=== PATIENT | male | born 1990 | race American Indian/Alaskan Native ===

== ENCOUNTER 2019-11-01 17:30 | Emergency (ER) | payer SELFPAY ==
[2019-11-01] MEDS ORDERED: TETANUS,DIPH,PERTUSS(ACELL) VACCINE 0.5 ML SYRINGE IM ONE ×2 (17:47→20:34)
[2019-11-01] MEDS ORDERED: NEOMY 3.5 MG/BACIT 400 UNITS/POLY B 5000 UNITS/GM OINT PACKET TP ONE ×2 (17:47→20:33)
[2019-11-01] MEDS ORDERED: LIDOCAINE (1%) 10 MG/1 ML VIAL 20 ML MDV INFILTRATI ONE (17:47)
[2019-11-01] MEDS ORDERED: ACETAMINOPHEN 325 MG TAB PO ONE (17:47)
[2019-11-01] MEDS ORDERED: SODIUM CHLORIDE 0.9% IRR 500 ML BOTTLE IR ONE (17:47)
--- NOTE | 2019-11-01 17:49 | Event Note ---
ED Screening Note ED Screening Note: lac to l hand - 5th digit occurred when changing glass full rom bleeding controlled needs tdap This initial assessment/diagnostic orders/clinical plan/treatment(s) is/are subject to change based on patients health status, clinical progression and re- assessment by fellow clinical providers in the ED. Further treatment and workup at subsequent clinical providers discretion. Patient/guardian urged not to elope from the ED as their condition may be serious if not clinically assessed and managed. Initial orders include: needs tdap and wound repair xray ro fb
--- NOTE | 2019-11-01 19:00 | XRay Report ---
LEFT HAND 3 VIEWS INDICATION / CLINICAL INFORMATION: LAC RO FB COMPARISON: None available. FINDINGS: BONES / JOINT(S): No acute fracture or subluxation. No significant arthritis. SOFT TISSUES: No significant abnormality. ADDITIONAL FINDINGS: None. Signer Name: Mode Carroll MD Signed: 11/01/2019 6:55 PM Workstation Name: [id number]
--- NOTE | 2019-11-01 20:21 | Emergency Department Report ---
- General Chief Complaint: Wound/Laceration Stated Complaint: LFT FINGER LAC/PAIN Time Seen by Provider: 11/01/19 17:47 Source: patient Mode of arrival: Ambulatory Limitations: No Limitations - History of Present Illness Initial Comments: Patient is a 29-year-old male presents emergency room with complaints of a laceration to the left pinky finger that occurred around 4:30 PM today. He states he also has an abrasion to the left ring finger. He states that he was changing a glass window pain and the glass broke and cut him. He still able to move the finger. He denies any numbness or weakness. He is unsure of his last tetanus immunization. He states he has a history of hypertension but is not on medications. He denies any allergies to medications. - Related Data Previous Rx's Medication Instructions Recorded Last Taken Type Amoxicillin 500 mg PO TID #30 tablet 06/13/14 Unknown Rx Butalb/Acetamin/Caff 50-325-40 1 each PO Q4H PRN #21 tablet 06/13/14 Unknown Rx [Fioricet] Ibuprofen [Motrin 800 MG tab] 800 mg PO Q8H PRN #21 tablet 06/13/14 Unknown Rx lisinopriL [Zestril TAB] 10 mg PO QDAY #30 tablet 06/13/14 Unknown Rx Guaifenesin/Codeine Phosphate 5 ml PO BID #120 ml 06/19/14 Unknown Rx [guaiFENesin-Codeine Solution] traMADoL [Ultram 50 MG tab] 50 mg PO Q4HR PRN #20 tablet 06/19/14 Unknown Rx Allergies Allergy/AdvReac Type Severity Reaction Status Date / Time chili powder Allergy Swelling Uncoded 06/19/14 00:17 ED Review of Systems ROS: Stated complaint: LFT FINGER LAC/PAIN Other details as noted in HPI Comment: All other systems reviewed and negative ED Past Medical Hx - Past Medical History Previous Medical History?: Yes Hx Hypertension: Yes Hx Asthma: Yes - Surgical History Past Surgical History?: No - Social History Smoking Status: Current Some Day Smoker Substance Use Type: Alcohol - Medications Home Medications: Home Medications Medication Instructions Recorded Confirmed Last Taken Type Amoxicillin 500 mg PO TID #30 tablet 06/13/14 06/19/14 Unknown Rx Butalb/Acetamin/Caff 50-325-40 1 each PO Q4H PRN #21 tablet 06/13/14 06/19/14 Unknown Rx [Fioricet] Ibuprofen [Motrin 800 MG tab] 800 mg PO Q8H PRN #21 tablet 06/13/14 06/19/14 Unknown Rx lisinopriL [Zestril TAB] 10 mg PO QDAY #30 tablet 06/13/14 06/19/14 Unknown Rx Guaifenesin/Codeine Phosphate 5 ml PO BID #120 ml 06/19/14 Unknown Rx [guaiFENesin-Codeine Solution] traMADoL [Ultram 50 MG tab] 50 mg PO Q4HR PRN #20 tablet 06/19/14 Unknown Rx ED Physical Exam - General Limitations: No Limitations General appearance: alert, in no apparent distress - Head Head exam: Present: atraumatic, normocephalic - Eye Eye exam: Present: normal appearance - ENT ENT exam: Present: mucous membranes moist - Extremities Exam Extremities exam: Present: other (1.5 cm superificial laceration present to the left pinky finger, no foreign body, no muscle tendon involvement, 1 cm abrasion to the left ring finger, FROM of the left fingers and hand, neurovascularly intact) - Neurological Exam Neurological exam: Present: alert, oriented X3 - Psychiatric Psychiatric exam: Present: normal affect, normal mood - Skin Skin exam: Present: warm, dry ED Course Vital Signs 11/01/19 11/01/19 17:49 21:11 Temperature 97.8 F Pulse Rate 77 72 Respiratory 18 16 Rate Blood Pressure 189/135 Blood Pressure 120/77 [Right] O2 Sat by Pulse 98 100 Oximetry - Laceration /Wound Repair Left Dorsal Finger Wound Location: upper extremity (dorsal surface of left pinky) Wound Length (cm): 1 (1.5 cm in length) Wound's Depth, Shape: superficial Wound Explored: clean Irrigated w/ Saline (ccs): 500 Betadine Prep?: Yes Anesthesia: 1% Lidocaine Volume Anesthetic (ccs): 2 Wound Debrided: moderate Wound Repaired With: sutures Suture Size/Type: 4:0 Number of Sutures: 2 Layer Closure?: No Sterile Dressing Applied?: Yes Progress: Wound irrigated with saline and thoroughly scrubbed with Betadine, no foreign body present, no muscle or tendon involvement, 2 cc of 1% lidocaine with epinephrine used as anesthetic, Betadine prep again, sterile gloves worn, sterile drapes applied, 4-0 Prolene used for skin closure, 2 sutures placed, patient tolerated well, no complications, bleeding controlled, sterile dressing applied ED Medical Decision Making - Lab Data Vital Signs 11/01/19 11/01/19 17:49 21:11 Temperature 97.8 F Pulse Rate 77 72 Respiratory 18 16 Rate Blood Pressure 189/135 Blood Pressure 120/77 [Right] O2 Sat by Pulse 98 100 Oximetry - Radiology Data Radiology results: report reviewed LEFT HAND 3 VIEWS INDICATION / CLINICAL INFORMATION: LAC RO FB COMPARISON: None available. FINDINGS: BONES / JOINT(S): No acute fracture or subluxation. No significant arthritis. SOFT TISSUES: No significant abnormality. ADDITIONAL FINDINGS: None. Signer Name: Mode Carroll MD Signed: 11/01/2019 6:55 PM Workstation Name: [id number] Transcribed By: IKER Dictated By: Mode Carroll MD Electronically Authenticated By: Mode Carroll MD Signed Date/Time: 11/01/191854 DD/ 49 TD/TT: - Medical Decision Making Patient is a 29-year-old male presents emergency room with complaints of a laceration to the left pinky finger that occurred around 4:30 PM today. He states he also has an abrasion to the left ring finger. He states that he was changing a glass window pain and the glass broke and cut him. He still able to move the finger. He denies any numbness or weakness. He is unsure of his last tetanus immunization. He states he has a history of hypertension but is not on medications. He denies any allergies to medications. Initial vitals with elevated blood pressure which improved upon repeat. On exam:1.5 cm superificial laceration present to the left pinky finger, no foreign body, no muscle tendon involvement, 1 cm abrasion to the left ring finger, FROM of the left fingers and hand, neurovascularly intact. XR left hand: No acute fracture or subluxation. No significant arthritis. SOFT TISSUES: No significant abnormality. Abrasion and laceration irrigated with saline and thoroughly scrubbed with Betadine. Laceration repaired per procedure note. advised pt Please keep areas clean, dry, covered. May wash with soap and water and immediately dry. No hot tub, no pool, no soaking in water. Sutures will need to be removed in 7 days. Please follow-up with a primary care doctor in the next 3 to 5 days. Please keep a blood pressure log and take your blood pressure 3 times a day and take this to the primary care doctor. Eat a low-sodium diet and incorporate daily exercise. There are several severe long-term effects of elevated blood pressure including issues with the heart, kidneys, vision, etc. it is very important that you follow-up with a primary care doctor to evaluate if you need to be on blood pressure medication. Return to the emergency room immediately for any new or worsening symptoms. Critical care attestation.: If time is entered above; I have spent that time in minutes in the direct care of this critically ill patient, excluding procedure time. ED Disposition Clinical Impression: Laceration, Abrasion, Elevated blood pressure reading Disposition: TO HOME OR SELFCARE Is pt being admited?: No Does the pt Need Aspirin: No Condition: Stable Instructions: Suture Care (ED), Laceration (ED), Abrasion (ED) Additional Instructions: Please keep areas clean, dry, covered. May wash with soap and water and immediately dry. No hot tub, no pool, no soaking in water. Sutures will need to be removed in 7 days. Please follow-up with a primary care doctor in the next 3 to 5 days. Please keep a blood pressure log and take your blood pressure 3 times a day and take this to the primary care doctor. Eat a low-sodium diet and incorporate daily exercise. There are several severe long-term effects of elevated blood pressure including issues with the heart, kidneys, vision, etc. it is very important that you follow-up with a primary care doctor to evaluate if you need to be on blood pressure medication. Return to the emergency room immediately for any new or worsening symptoms. Referrals: GEORGINA CONCEPCION MD [Staff Physician] - 3-5 Days [facility] [Outside] - 3-5 Days [facility] [Provider Group] - 3-5 Days [facility] [Outside] - 3-5 Days Time of Disposition: 20:19 Print Language: AUSTRIAN
[2019-11-01] MEDS ORDERED: LIDOCAINE-MPF (1%) 10 MG/1 ML VIAL 5 ML INFILTRATI ONE (20:32)
[2019-11-01] MEDS ORDERED: ACETAMINOPHEN 325 MG TAB ONE (20:33)
[2019-11-01] MEDS ORDERED: LIDOCAINE-MPF (1%) 10 MG/1 ML VIAL 5 ML ONE (20:34)
[2019-11-02 00:45] VITALS: BP 120/77
== END 2019-11-01 20:45 | disposition home or self-care (01) ==
LOC: ED 17:30
DX: S61.217A Laceration without foreign body of left little finger without damage to nail, initial encounter (principal); S60.415A Abrasion of left ring finger, initial encounter; R03.0 Elevated blood-pressure reading, without diagnosis of hypertension; I10 Essential (primary) hypertension; J45.909 Unspecified asthma, uncomplicated; F17.200 Nicotine dependence, unspecified, uncomplicated; Z79.899 Other long term (current) drug therapy; Z91.018 Allergy to other foods; X58.XXXA Exposure to other specified factors, initial encounter; Y93.89 Activity, other specified; Y92.89 Other specified places as the place of occurrence of the external cause; Y99.8 Other external cause status
CPT/HCPCS: 90715; 96372; A6250